=== PATIENT | female | born 1975 | race Caucasian/White ===

== ENCOUNTER 2019-04-02 09:03 | Outpatient (REF) | payer BC, SELFPAY ==
[2019-04-02 20:59] LABS: HGB 12.9 g/dL (12.0-15.5)
[2019-04-02 21:35] LABS: TSH (W/Ref FT4) 16.41 uIU/mL (0.358-3.74)
[2019-04-02 22:11] LABS: FREE T4 0.55 ng/dL (0.76-1.46)
[2019-04-07 09:54] LABS: FSH 39.3 mIU/ml; LH 13.5 mIU/ml
== END 2019-04-02 09:23 ==
LOC: NCHCN 09:03
PROVIDERS: Family Medicine; PCP Family Medicine; Visit Provider Family Medicine
DX: E05.00 Thyrotoxicosis with diffuse goiter without thyrotoxic crisis or storm (principal); E03.9 Hypothyroidism, unspecified; N93.9 Abnormal uterine and vaginal bleeding, unspecified
CPT/HCPCS: 83001; 83002; 84439; 84443; 85014; 85018

== ENCOUNTER 2019-04-06 14:41 | Outpatient (REF) | payer BC, SELFPAY ==
--- NOTE | 2019-04-06 10:20 | PAPFT_PTH ---
PATIENT: Alejandrina Martin LOC: [facility]#:[id number] AGE/SX: 44/F ROOM: RE04/06/[address]: Mini Gamboa : 1975 BED: DIS: 04/06/2019 SPEC #: [id number] RECD: 04/07/19 12:49 STATUS: HAFSA REQ #: [id number] AMBER: 04/06/19 10:[address]: Mini Gamboa DEPT: [facility] Cytology RECD BY: Mariluz Foster ENTERED: 04/07/19 12:50 SP TYPE: PAPFT OTHR DR: Meron Howard Tissues: 1 - CX/ENDOCX FOR PAP SMEARS Procedures: PAP THIN PREP/[facility] Screening Comments: [id number]
== END 2019-04-06 15:01 ==
LOC: NCHCN 14:41
PROVIDERS: PCP Family Medicine; Visit Provider Family Medicine
DX: Z12.4 Encounter for screening for malignant neoplasm of cervix (principal)
CPT/HCPCS: 88142

== ENCOUNTER 2019-04-20 15:35 | Outpatient (REF) | payer BC, SELFPAY ==
[2019-04-20 22:42] LABS: HCG Qual (Serum) Negative
[2019-04-20 22:49] LABS: Ferritin 19 ng/mL (8-388)
[2019-04-20 22:52] LABS: HCT 37.7 % (36.0-46.0); HGB 12.6 g/dL (12.0-15.5); Mean Corp. HGB Concentration 33.4 g/dL (32.0-36.0); Mean Corpuscular Hemoglobin 32.6 pg (27.0-33.0); Mean Corpuscular Volume 97.4 fL (80-95); Mean Platelet Volume 9.4 fL (8.0-11.0); Platelet Count 419 x1000/uL (130-400); RBC 3.87 m/cumm (4.00-5.20); RBC Distribution Width 15.4 % (11.7-14.6); White Blood Cell Count 9.67 k/cumm (4.4-10.8)
[2019-04-20 23:22] LABS: Iron 98 ug/dL (50-175); Total Iron Binding Capacity 478 ug/dL (250-450); Transferrin Sat 21 % (15-50)
[2019-04-21 17:31] LABS: Estradiol 467 pg/ml
[2019-04-22 10:15] LABS: Transferrin 376 mg/dL (201-352)
== END 2019-04-20 15:55 ==
LOC: NCHCN 15:35
PROVIDERS: PCP Family Medicine; Visit Provider Family Medicine
DX: N93.9 Abnormal uterine and vaginal bleeding, unspecified (principal); R53.83 Other fatigue; N85.2 Hypertrophy of uterus; E03.9 Hypothyroidism, unspecified
CPT/HCPCS: 85027; 82670; 82728; 83540; 83550; 84466; 84703

== ENCOUNTER 2020-03-06 13:03 | Outpatient (REF) | payer BC, SELFPAY ==
[2020-03-06 22:29] LABS: Abs Immature Grans 0.02 k/cumm (0.0-0.09); Absolute Basophil Count 0.02 k/cumm (0.0-0.2); Absolute Eosinophil Count 0.06 k/cumm (0.0-0.7); Absolute Lymphocyte Count 1.98 k/cumm (1.2-3.4); Absolute Neutrophil Count 5.76 k/cumm (1.2-6.7); Basophils % 0.2; Eosinophils % 0.7; HCT 42.2 % (36.0-46.0); HGB 14.4 g/dL (12.0-15.5); Immature Grans % 0.2 %; Lymphocytes % 23.2; Mean Corp. HGB Concentration 34.1 g/dL (32.0-36.0); Mean Corpuscular Hemoglobin 32.9 pg (27.0-33.0); Mean Corpuscular Volume 96.3 fL (80-95); Mean Platelet Volume 9.4 fL (8.0-11.0); Monocytes % 8.2; Neutrophils % 67.5; Platelet Count 414 x1000/uL (130-400); RBC 4.38 m/cumm (4.00-5.20); White Blood Cell Count 8.54 k/cumm (4.4-10.8)
[2020-03-06 22:57] LABS: ALT 81 U/L (14-59); AST 66 U/L (15-37); Albumin 3.9 g/dL (3.4-5.0); Alkaline Phosphatase 71 U/L (46-116); Anion Gap 12.9 mmol/L (3-11); BUN 7 mg/dL (7-18); Bilirubin, Total 0.3 mg/dL (0.2-1.0); CO2 20.1 mmol/L (21.0-32.0); CREATININE 0.61 mg/dL (0.55-1.02); Chloride 105 mmol/L (98-107); Glucose 99 mg/dL (74-106); Potassium 4.3 mmol/L (3.5-5.1); Sodium 138 mmol/L (136-145); TSH (W/Ref FT4) 0.81 uIU/mL (0.36-3.74); Total Protein 7.3 g/dL (6.4-8.2)
== END 2020-03-06 13:23 ==
LOC: NCHCN 13:03
PROVIDERS: PCP Family Medicine; Visit Provider Nurse Practitioner Family
DX: E03.9 Hypothyroidism, unspecified (principal); R10.9 Unspecified abdominal pain; R19.7 Diarrhea, unspecified; R11.0 Nausea
CPT/HCPCS: 80053; 84443; 85025

== ENCOUNTER 2020-03-09 10:38 | Outpatient (REF) | payer BC, SELFPAY ==
[2020-03-09 20:46] LABS: ALT 145 U/L (14-59); AST 91 U/L (15-37); Albumin 4.1 g/dL (3.4-5.0); Alkaline Phosphatase 68 U/L (46-116); Anion Gap 13.8 mmol/L (3-11); BUN 7 mg/dL (7-18); Bilirubin, Total 0.3 mg/dL (0.2-1.0); CO2 24.2 mmol/L (21.0-32.0); CREATININE 0.84 mg/dL (0.55-1.02); Calcium 9.1 mg/dL (8.5-10.1); Chloride 103 mmol/L (98-107); Glucose 119 mg/dL (74-106); Lipase 100 U/L (73-393); Potassium 3.8 mmol/L (3.5-5.1); Sodium 141 mmol/L (136-145); Total Protein 7.3 g/dL (6.4-8.2)
== END 2020-03-09 10:58 ==
LOC: NCHCN 10:38
PROVIDERS: PCP Family Medicine; Visit Provider Nurse Practitioner Family
DX: R19.7 Diarrhea, unspecified (principal); R11.0 Nausea; R10.9 Unspecified abdominal pain
CPT/HCPCS: 80053; 83690

== ENCOUNTER 2020-03-14 12:59 | Outpatient (REF) | payer BC, SELFPAY ==
[2020-03-14 22:17] LABS: ALT 75 U/L (14-59); AST 28 U/L (15-37); Albumin 3.7 g/dL (3.4-5.0); Alkaline Phosphatase 64 U/L (46-116); Anion Gap 9.9 mmol/L (3-11); BUN 6 mg/dL (7-18); Bilirubin, Total 0.3 mg/dL (0.2-1.0); CO2 25.1 mmol/L (21.0-32.0); CREATININE 0.64 mg/dL (0.55-1.02); Calcium 9.2 mg/dL (8.5-10.1); Chloride 103 mmol/L (98-107); Glucose 100 mg/dL (74-106); Potassium 4.5 mmol/L (3.5-5.1); Sodium 138 mmol/L (136-145); Total Protein 6.9 g/dL (6.4-8.2)
[2020-03-16 10:38] LABS: Hepatitis A Antibody IgM Negative (Negative); Hepatitis B Core Antibody Negative (Negative); Hepatitis B surface Ag Negative (Negative); Hepatitis C Ab w Rflx HCV PCR Negative (Negative)
== END 2020-03-14 13:19 ==
LOC: NCHCN 12:59
PROVIDERS: PCP Family Medicine; Visit Provider Family Medicine
DX: R10.9 Unspecified abdominal pain (principal); R19.7 Diarrhea, unspecified; R11.0 Nausea
CPT/HCPCS: 80053; 86704; 86709; 86803; 87340

== ENCOUNTER 2020-04-10 21:13 | Outpatient (REF) | payer BC, SELFPAY ==
[2020-04-10 22:30] LABS: ALT 27 U/L (14-59); AST 20 U/L (15-37); Albumin 4.1 g/dL (3.4-5.0); Alkaline Phosphatase 70 U/L (46-116); Bilirubin, Direct 0.09 mg/dL (0.00-0.20); Bilirubin, Total 0.3 mg/dL (0.2-1.0); Total Protein 7.4 g/dL (6.4-8.2)
[2020-04-12 12:50] LABS: IgA 162 mg/dL (85-499); Tissue Transglutaminase IgA <1.2 U/mL (<4.0)
== END 2020-04-10 21:33 ==
LOC: NCHCN 21:13
PROVIDERS: PCP Family Medicine; Visit Provider Family Medicine
DX: R51 Headache (principal); R53.83 Other fatigue
CPT/HCPCS: 80076; 82784; 83516

== ENCOUNTER 2020-10-17 15:58 | Outpatient (REF) | payer BC, SELFPAY ==
[2020-10-17 21:50] LABS: HCT 41.1 % (36.0-46.0); HGB 13.8 g/dL (11.2-15.7); MCH 33.7 pg (27.0-33.0); MCHC 33.6 % (32.0-36.0); MCV 100.2 fL (80-95); MPV 8.9 fL (8.0-11.0); Platelet Count 399 10^3/uL (130-400); RDW-SD 48.5 fL
[2020-10-17 22:06] LABS: Hemoglobin A1C 5.4 % (<5.7)
[2020-10-17 22:48] LABS: ALT 27 U/L (14-59); AST 20 U/L (15-37); Albumin 4.4 g/dL (3.4-5.0); Alkaline Phosphatase 62 U/L (46-116); Anion Gap 10.1 mmol/L (3-11); BUN 13 mg/dL (7-18); Bilirubin, Total 0.3 mg/dL (0.2-1.0); CO2 28.9 mmol/L (21.0-32.0); CREATININE 0.8 mg/dL (0.55-1.02); Calcium 9.6 mg/dL (8.5-10.1); Chloride 100 mmol/L (98-107); FREE T4 0.66 ng/dL (0.76-1.46); Glucose 95 mg/dL (74-106); Potassium 4.1 mmol/L (3.5-5.1); Sodium 139 mmol/L (136-145); TSH 5.81 uIU/mL (0.36-3.74); Total Protein 8.3 g/dL (6.4-8.2)
[2020-10-17 23:13] LABS: Calculated LDL 194 mg/dL (<100); Cholesterol 302 mg/dL (<200); Ferritin 83 ng/mL (8-252); HDL Cholesterol 66 mg/dL (40-60); Triglyceride 212 mg/dL (<150)
[2020-10-18 16:55] LABS: T3,Free 4.3 pg/mL (2.8-5.3)
== END 2020-10-17 15:59 | disposition home or self-care (01) ==
LOC: LBN 15:58
PROVIDERS: PCP Family Medicine; Visit Provider Internal Medicine Endocrinology, Diabetes & Metabolism
DX: R53.82 Chronic fatigue, unspecified (principal); E89.0 Postprocedural hypothyroidism; Z00.00 Encounter for general adult medical examination without abnormal findings; Z13.220 Encounter for screening for lipoid disorders
CPT/HCPCS: 80053; 80061; 85027; 82728; 83036; 84439; 84443; 84481

== ENCOUNTER 2022-04-02 14:51 | Outpatient (REF) | payer BC, SELFPAY ==
[2022-04-02 22:12] LABS: FREE T4 0.88 ng/dL (0.76-1.46); TSH 0.12 uIU/mL (0.36-3.74)
== END 2022-04-02 14:52 | disposition home or self-care (01) ==
LOC: NCHCN 14:51
PROVIDERS: PCP Family Medicine; Visit Provider Internal Medicine
DX: E03.9 Hypothyroidism, unspecified (principal)
CPT/HCPCS: 84439; 84443

== ENCOUNTER 2022-08-13 21:26 | Outpatient (REF) | payer BC, SELFPAY ==
--- NOTE | 2022-08-13 14:15 | PAPFT_PTH ---
PATIENT: Alejandrina Martin LOC: [facility]#:[id number] AGE/SX: 47/F ROOM: RE08/13/[address]: Meron Howard : 1975 BED: DIS: 08/13/2022 SPEC #: [id number] RECD: 08/14/22 13:00 STATUS: HAFSA REQ #: [id number] AMBER: 08/13/22 14:[address]: Meron Howard DEPT: [facility] Cytology RECD BY: Mariluz Foster Tissues: 1 - CX/ENDOCX FOR PAP SMEARS Procedures: PAP THIN PREP/[facility] Screening HPV DNA PROBE Comments: [id number]
[2022-08-13 22:01] LABS: RDW-SD 47.9 fL
[2022-08-13 22:12] LABS: HGB 13.3 g/dL (11.2-15.7); RBC 4.04 10^6/uL (3.93-5.22); WBC 8.51 10^3/uL (4.4-10.8)
[2022-08-13 22:13] LABS: HCT 39.1 % (36.0-46.0); MCH 32.9 pg (27.0-33.0); MCV 97 fL (80-95); Platelet Count 423 10^3/uL (130-400); RDW 13.2 % (11.7-14.6)
[2022-08-13 22:14] LABS: BUN 9 mg/dL (7-18); CREATININE 0.6 mg/dL (0.55-1.02); Calcium 9.4 mg/dL (8.5-10.1); Chloride 101 mmol/L (98-107); Estimated GFR 110.65 (mL/min/1.73m2); Glucose 80 mg/dL (74-106); Potassium 3.4 mmol/L (3.5-5.1); Sodium 136 mmol/L (136-145)
[2022-08-13 22:15] LABS: TSH (W/Ref FT4) < 0.01 uIU/mL (0.36-3.74)
[2022-08-13 22:34] LABS: FREE T4 1.05 ng/dL (0.76-1.46)
[2022-08-13 23:08] LABS: Vitamin D 25 Total 35.6 ng/mL (30-100)
== END 2022-08-13 21:27 | disposition home or self-care (01) ==
LOC: NCHCN 21:26
PROVIDERS: PCP Family Medicine; Visit Provider Family Medicine
DX: E05.00 Thyrotoxicosis with diffuse goiter without thyrotoxic crisis or storm (principal); E55.9 Vitamin D deficiency, unspecified; R55 Syncope and collapse; Z12.4 Encounter for screening for malignant neoplasm of cervix; Z11.51 Encounter for screening for human papillomavirus (HPV)
CPT/HCPCS: 80048; 82306; 85027; 88142; 84439; 84443; 87624

== ENCOUNTER 2022-12-05 16:02 | Outpatient (REF) | payer BC, SELFPAY ==
[2022-12-05 21:46] LABS: TSH < 0.01 uIU/mL (0.36-3.74)
== END 2022-12-05 16:03 | disposition home or self-care (01) ==
LOC: NCHCN 16:02
PROVIDERS: PCP Family Medicine; Visit Provider Family Medicine
DX: E03.9 Hypothyroidism, unspecified (principal); E05.00 Thyrotoxicosis with diffuse goiter without thyrotoxic crisis or storm
CPT/HCPCS: 84443

== ENCOUNTER 2023-04-14 16:00 | Outpatient (REF) | payer BC, SELFPAY ==
[2023-04-14 19:08] LABS: TSH 0.06 uIU/mL (0.36-3.74)
== END 2023-04-14 16:01 | disposition home or self-care (01) ==
LOC: NCHCN 16:00
PROVIDERS: PCP Family Medicine; Visit Provider Family Medicine
DX: E05.00 Thyrotoxicosis with diffuse goiter without thyrotoxic crisis or storm (principal)
CPT/HCPCS: 84443

== ENCOUNTER 2024-02-24 18:21 | Outpatient (REF) | payer BC, SELFPAY ==
[2024-02-24 21:47] LABS: Abs Immature Grans 0.02 10^3/uL (0.0-0.06); Absolute Basophil Count 0.04 10^3/uL (0.0-0.2); Absolute Eosinophil Count 0.08 10^3/uL (0.0-0.7); Absolute Lymphocyte Count 5.03 10^3/uL (1.2-3.4); Absolute Monocyte Count 0.67 10^3/uL (0.1-0.8); Absolute Neutrophil Count 3.51 10^3/uL (1.2-6.7); Basophils % 0.4 %; Eosinophils % 0.9 %; HCT 41.1 % (36.0-46.0); Immature Grans % 0.2 %; Lymphocytes % 53.8 %; MCH 32.9 pg (27.0-33.0); MCHC 34.1 % (32.0-36.0); MCV 97 fL (80-95); Monocytes % 7.2 %; Neutrophils % 37.5 %; Platelet Count 356 10^3/uL (130-400); RBC 4.26 10^6/uL (3.93-5.22); RDW 12.6 % (11.7-14.6); WBC 9.35 10^3/uL (4.4-10.8)
[2024-02-24 22:04] LABS: Hemoglobin A1C 5.9 % (<5.7)
[2024-02-24 22:19] LABS: Diff Comment Diff Reviewed; RBC Morphology Normal
[2024-02-24 22:24] LABS: ALT 28 U/L (14-59); AST 26 U/L (15-37); Albumin 4.2 g/dL (3.4-5.0); Alkaline Phosphatase 65 U/L (46-116); Anion Gap 8.9 mmol/L (3-11); BUN 16 mg/dL (7-18); Bilirubin, Total 0.3 mg/dL (0.2-1.0); CO2 27.1 mmol/L (21.0-32.0); CREATININE 0.6 mg/dL (0.55-1.02); Calcium 9.5 mg/dL (8.5-10.1); Calculated LDL 143 mg/dL (<100); Chloride 101 mmol/L (98-107); Cholesterol 261 mg/dL (<200); Estimated GFR 109.28 (mL/min/1.73m2); Glucose 110 mg/dL (74-106); HDL Cholesterol 74 mg/dL (40-60); Sodium 137 mmol/L (136-145); TSH 1.55 uIU/Ml (0.36-3.74); Total Protein 8.1 g/dL (6.4-8.2); Triglyceride 221 mg/dL (<150); Vitamin D 25 Total 31.6 ng/mL (30-100)
[2024-02-24 22:44] LABS: FREE T4 0.73 ng/dL (0.76-1.46)
[2024-02-25 23:24] LABS: Vitamin B12 681 pg/mL (193-986)
== END 2024-02-24 18:22 | disposition home or self-care (01) ==
LOC: NCHCN 18:21
PROVIDERS: PCP Family Medicine; Visit Provider Family Medicine
DX: Z51.81 Encounter for therapeutic drug level monitoring (principal); E55.9 Vitamin D deficiency, unspecified; Z13.220 Encounter for screening for lipoid disorders; Z13.1 Encounter for screening for diabetes mellitus; E03.9 Hypothyroidism, unspecified
CPT/HCPCS: 80053; 80061; 82306; 82607; 83036; 84439; 84443; 85025

== ENCOUNTER 2024-03-12 13:15 | Outpatient (REF) | payer BC, SELFPAY ==
--- OUTSIDE RECORDS SUMMARY | 2024-03-12 13:17 | XMS_ITS ---
Author Name Unknown Address [address] [place] [address] [phone] Phone Organization Unknown Address [address] [place] [address] [phone] Phone Care Team Providers Care Teacher Specialist Name Role Phone IVAN MADRID Registered Nurse Unavailable SHARON VALVERDE Registered Nurse Unavailable MANDY Mariee Attending Unavailable POLINA [facility] Unavailable JJ Raymundo Primary Unavailable UNLISTED PROVIDER - REQUESTED Xhandoff Un available Results XR FINGERS(S) LT 3V* - Compl eted: 08/20/2021 18:55 LOINC: LEFT THUMB - 3 VIEWS: There is a mildly displaced fracture of the tuft of the distal phalanx. No radiopaque foreign body. No osseous lesions. Dictated by: PAULO MULTANI MD Transcribed by: JUAN M 08/21/21/09:51 D Saturday, August 21, 2021 8:18:16 AM [id number] Electronically Reviewed and Signed By: MADISON MULTANI MD 08/21/21 19:25 Copy for: [facility] HEALTH INFORMATION MGMT DISCHARGED Social History Type Status Start Date End Date Code Code Syst em Smoking History Current every day smoker 156613966 SNOMED CT Sex Female Vital Signs Vital Sign Value Unit Limestone Value Limestone Unit Date/Time Recent/Initial? Code Code System Body Mass Index 29.85 kg/m2 08/20/2021 16:55 Initial 47593 -5 LOINC Systolic Blood Pressure 126 mm[Hg] 08/20/2021 19:26 Most Recent 8480- 6 LOINC Diastolic Blood Pressure 85 mm[Hg] 08/20/2021 19:26 Most Recent 8462- 4 LOINC Systolic Blood Pressure 161 mm[Hg] 08/20/2021 16:55 Initial 8480- 6 LOINC Diastolic Blood Pressure 81 mm[Hg] 08/20/2021 16:55 Initial 8462- 4 LOINC Body Surface Area 1.76 m2 08/20/2021 16:55 Initial 3140- 1 LOINC Height 154.940 0 cm 61.00 in 08/20/2021 16:55 Initial 8302- 2 LOINC O2 Saturation 95 % 2020 19:26 Most Recent 42673 -5 LOINC O2 Saturation 100 % 2020 16:55 Initial 38711 -5 LOINC Pulse 64.0 /min 08/20/2021 19:26 Most Recent 8867- 4 LOINC Pulse 66.0 /min 08/20/2021 16:55 Initial 8867- 4 LOINC Respiration 16 /min 08/20/20 19:26 Most Recent 9279- 1 LOINC Respiration 18 /min 08/20/20 16:55 Initial 9279- 1 LOINC Temperature 36.6 Leandra 97.9 F 08/20/20 16:55 Initial 8310- 5 LOINC Weight 71.67 kg 158.00 lbs 08/20/2021 16:55 Initial 79609 -7 LOINC Hospital Discharge Instructions Should you have any questions prior to discharge, please contact a member of your healthcare team. If you have left the hospital and have any questions, please contact your primary care physician. Reason For Referral No Data Found Allergies and Adverse Reactions Allergy Substance Reaction Severity Start Date Concern Status Co de Code System No Known Allergies Active 141636458 [facility] MED-CT Plan of Treatment School 08/17/2020 MM SCREEN BILAT 09/11/2022 Encounters Encounter Diagnosis Start Date Code Code Sys tem Displaced fracture of distal phalanx of left thumb, initial encounter for closed fracture 08/20/2021 SN OMED-CT Personal Care Team Section Performer Name Performer Role Active Date Inactive Da te
--- OUTSIDE RECORDS SUMMARY | 2024-03-12 13:18 | XMS_ITS ---
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 COMPARISON: No exams were available for comparison ? FINDINGS: No evidence of fracture nor dislocation. No abnormal soft tissue calcifications. No degenerative changes. No osseous lesions. IMPRESSION: No significant findings. Report Digitally Signed by Damon Shaw on 08/29/2022 08:54 PM EST Social History Type Status Start Date End Date Code Code Syst em Smoking History Current every day smoker 105604689 SNOMED CT Sex Female Hospital Discharge Instructions Should you have any questions prior to discharge, please contact a member of your healthcare team. If you have left the hospital and have any questions, please contact your primary care physician. Reason For Referral No Data Found Allergies and Adverse Reactions Allergy Substance Reaction Severity Start Date Concern Status Co de Code System No Known Allergies Active 576200059 SN[facility] MED-CT Plan of Treatment School 08/17/2020 MM SCREEN BILAT 09/11/2022 Encounters Encounter Diagnosis Start Date Code Code Sys [facility] 08/29/2022 [id number] SNOMED-CT Personal Care Team Section Performer Name Performer Role Active Date Inactive Da te
--- OUTSIDE RECORDS SUMMARY | 2024-03-12 13:19 | XMS_ITS ---
Author Name Unknown Address [address], [place] [phone] Phone Organization Unknown Address [address] [place] [address] [phone] Phone Care Team Providers Care Windsurfing Instructor Name Role Phone ARLIN BUTLER Attending Unavailable JJ Raymundo Primary Unavailable Social History Type Status Start Date End Date Code Code Syst em Smoking History Current every day smoker 779262034 SNOMED CT Sex Female Hospital Discharge Instructions [...] de Code System No Known Allergies Active 817718047 [facility] MED-CT Plan of Treatment School 08/17/2020 MM SCREEN BILAT 09/11/2022 Personal Care Team Section Performer Name Performer Role Active Date Inactive Da te
--- OUTSIDE RECORDS SUMMARY | 2024-03-12 13:19 | XMS_ITS ---
Author Name Unknown Address [address] [place] [address] [phone] Phone Organization Unknown Address [address] [place] [phone] Phone Care Team Providers Care Public Speaker Name Role Phone DAVID Worthy Attending Unavailable JJ Raymundo Primary Unavailable Results QUANTIFERON TEST FOR TB UVMM C - Collect Date/Time: 06/25/2023 15:58 [facility] ID: [id number] [address] [place] [address], [phone] LOINC: 41220-7 Test Value Unit Reference Range Code Code System Flag TB Interpretation Negative Negative TB1 Ag minus Nil 0.08 IU/ml TB2 Ag minus Nil 0.14 IU/mL Social History Type Status Start Date End Date Code Code Syst em Smoking History Current every day smoker 449659074 SNOMED CT Sex Female Hospital Discharge Instructions [...] de Code System No Known Allergies Active 478788355 [facility] MED-CT Plan of Treatment School 08/17/2020 MM SCREEN BILAT 09/11/2022 Encounters Encounter Diagnosis Start Date Code Code Sys tem Hidradenitis suppurativa 06/25/2023 50888858 SNO MED-CT Personal Care Team Section Performer Name Performer Role Active Date Inactive Da te
--- OUTSIDE RECORDS SUMMARY | 2024-03-12 13:19 | XMS_ITS ---
Author Name Unknown Address [address] [place] [address] [phone] Phone Organization Unknown Address [address] [place] [address] [phone] Phone Care Team Providers Care Licensed Vocational Nurse Name Role Phone ARLIN BUTLER Attending Unavailable JJ Raymundo Primary Unavailable Results CBC W/ DIFFERENTIAL* - Colle ct Date/Time: 06/27/2023 15:31 [facility] ID: [id number] [address] [place] [address], [address] LOINC: 93960-3 Test Value Unit Reference Range Code Code System Flag WBC 7.98 th/cmm L=5.00 H=10.00 6690-2 LOINC NEUT % 40.2 % L=40.0 H=80.0 LYMPH % 49.4 % L=10.0 H=50.0 MONO % 7.3 % L=2.0 H=12.0 38652-0 LOINC EOS % 2.4 % L=0.0 H=8.0 BASO % 0.4 % L=0.0 H=3.0 IG % 0.3 % L=0.0 H=1.1 2514-8 LOINC NRBC % 0.0 % L=0.0 H=0.0 33173-5 LOINC NEUT abs count 3.2 th/cmm L=1.6 H=8.4 751-8 LOINC LYMPH abs count 3.9 th/cmm L=1.5 H=4.0 731-0 LOINC MONO abs count 0.6 th/cmm L=0.2 H=1.0 742-7 LOINC EOS abs count 0.2 th/cmm L=0.0 H=0.5 711-2 LOINC BASO abs count 0.0 th/cmm L=0.0 H=0.2 704-7 LOINC IG abs count 0.0 th/cmm L=0.0 H=0.1 27960-3 LOINC NRBC abs count 0.0 mil/cmm L=0.0 H=0.0 97604-8 LOINC RBC 3.93 mil/cmm L=3.90 H=5.40 789-8 LOINC HEMOGLOBIN 12.8 gm/dL L=12.0 H=16.0 718-7 LOINC HEMATOCRIT 38 % L=37 H=47 4544-3 LOINC MCV 97 fL L=82 H=92 787-2 LOINC H MCH 32.6 pg L=27.0 H=31.0 785-6 LOINC H MCHC 33.5 % L=32.0 H=36.0 786-4 LOINC RDW-SD 46.2 fL L=39.0 H=49.0 788-0 LOINC PLATELET COUNT 327 th/cmm L=150 H=450 777-3 LOINC COMPREHENSIVE METABOLIC PANE L (CMP) - Collect Date/Time: 06/27/2023 15:31 [facility] ID: [id number] [address] [place] [place], [place], [address] LOINC: 46838-7 Test Value Unit Reference Range Code Code System Flag GLUCOSE 108 mg/dL L=70 H=116 2345-7 LOINC BUN 9 mg/dL L=6 H=25 3094-0 LOINC CREATININE 0.65 mg/dL L=0.51 H=0.95 2160-0 LOINC SODIUM SERUM 135 mmol/L L=136 H=145 2951-2 LOINC L POTASSIUM SERUM 3.3 mmol/L L=3.4 H=5.2 2823-3 LOINC L CHLORIDE SERUM 99 mmol/L L=96 H=110 2075-0 LOINC CARBON DIOXIDE (CO2) 28 mmol/L L=22 H=34 2028-9 LOINC ANION GAP 8.5 mmol/L 10193-4 LOINC CALCIUM SERUM 8.9 mg/dL L=8.2 H=10.2 98158-6 LOINC BILIRUBIN TOTAL 0.3 mg/dL L=0.0 H=1.3 1975-2 LOINC ALK. PHOS. 67 U/L L=46 H=116 6768-6 LOINC SGOT (AST) 19 U/L L=15 H=37 1920-8 LOINC SGPT (ALT) 34 U/L L=12 H=78 1742-6 LOINC TOTAL PROTEIN 7.7 gm/dL L=6.0 H=8.0 2885-2 LOINC ALBUMIN 3.8 gm/dL L=3.4 H=5.0 1751-7 LOINC AGE 48 years eGFR (non-Afr.Amer.) 97 mL/min 45285-6 LOINC eGFR (Afr-Swazi) 117 mL/min 35540-2 LOINC HIV 1/2 ANTIGEN AND ANTIBODY SCREEN - Collect Date/Time: 06/27/2023 15:31 [facility] ID: [id number] [address] [place] [address], [id number] LOINC: 93323-2 Test Value Unit Reference Range Code Code System Flag HIV 1/2 Antigen andAntibody Negative Negative HEP C ANTIBODY WITH REFLEX P CR - Collect Date/Time: 06/27/2023 15:31 [facility] ID: [id number] [address] [place] [address], [id number] LOINC: 57219-7 Test Value Unit Reference Range Code Code System Flag Hep C Ab w Rfx PCR Negative Negative HEP B PROFILE* - Collect Phillip e/Time: 06/27/2023 15:31 [facility] ID: [id number] [address] [place] [address], [phone] LOINC: Test Value Unit Reference Range Code Code System Flag Hep B Surface Ag Negative Negative Hep B Core Antibody Negative Negative Hep B Surface Ab Negative See Note HBs Antibody, Quant 8.9 mIU/mL See Note Social History Type Status Start Date End Date Code Code Syst em Smoking History Current every day smoker 308869010 SNOMED CT Sex Female Hospital Discharge Instructions [...] de Code System No Known Allergies Active 495006438 [facility] MED-CT Plan of Treatment School 08/17/2020 MM SCREEN BILAT 09/11/2022 Encounters Encounter Diagnosis Start Date Code Code Sys tem Hidradenitis suppurativa 06/27/2023 SNO MED-CT Personal Care Team Section Performer Name Performer Role Active Date Inactive Da te
--- OUTSIDE RECORDS SUMMARY | 2024-03-12 13:19 | XMS_ITS ---
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 COMPARISON: Prior baseline mammogram of March 2019 was reviewed. FINDINGS: There has been no significant change in the appearance and distribution of the fibroglandular tissue which is again noted to be moderately dense.. There are no CAD designations There are no spiculated masses nor malignant appearing microcalcification groups. Asymmetric density medially in the left breast is unchanged from 2019 and therefore benign. There are no new spiculated masses nor malignant appearing microcalcification groups in either breast. There is no significant architectural distortion nor skin thickening-retraction. IMPRESSION: 1. No radiographic evidence of malignancy. Stable benign findings BiRads Category: 2-benign findings BI_RADS Density Category C: Heterogeneously dense Breast density Category C or D implies that the patient has dense breast tissue. Dense breast tissue can make it harder to find cancer on a mammogram. Dense breast tissue is also associated with an increased risk of breast cancer. This information about the result of the mammogram report was provided to the patient to raise their awareness. Use this report when you speak with the patient about their risks for breast cancer, which includes their family history. At that time, you may recommend additional screening tests (Ultrasound or MRI) as these tests may add significant information. A negative radiographic report should not delay biopsy if a dominant or clinically suspicious mass is present. Up to ten percent of cancers are not identified on mammography. A negative report may reinforce clinical impression. Adenosis and dense breasts may obscure an underlying neoplasm. False positive reports average 6 to 10%. Patient will receive a letter notifying them of these results. Report Digitally Signed by Damon Shaw on 09/11/2022 11:48 AM EST Social History Type Status Start Date End Date Code Code Syst em Smoking History Current every day smoker 777792082 SNOMED CT Sex Female Hospital Discharge Instructions [...] de Code System No Known Allergies Active 413325080 SNO MED-CT Plan of Treatment School 08/17/2020 MM SCREEN BILAT 09/11/2022 Encounters Encounter Diagnosis Start Date Code Code Sys tem Encounter for screening mamm ogram for malignant neoplasm of breast 09/11/2022 SNOMED-CT Personal Care Team Section Performer Name Performer Role Active Date Inactive Da te
[2024-03-12 15:36] LABS: Folate > 20.0 ng/mL (8.6-20.0)
== END 2024-03-12 13:16 | disposition home or self-care (01) ==
LOC: NCHCN 13:15
PROVIDERS: PCP Family Medicine; Visit Provider Family Medicine
DX: D75.89 Other specified diseases of blood and blood-forming organs (principal)
CPT/HCPCS: 82746

== ENCOUNTER 2025-02-04 17:12 | Outpatient (REF) | payer BC, SELFPAY ==
[2025-02-04 15:33] LABS: TSH (W/Ref FT4) 2.22 uIU/mL (0.36-3.74)
== END 2025-02-04 17:13 | disposition home or self-care (01) ==
LOC: NCHCN 17:12
PROVIDERS: PCP Family Medicine; Visit Provider Family Medicine
DX: E03.9 Hypothyroidism, unspecified (principal)
CPT/HCPCS: 84443